=== PATIENT | female | born 1950 | race Caucasian/White ===

== ENCOUNTER 2018-01-19 14:56 | Emergency (ER) | payer OTHER, BC ==
[2018-01-19] MEDS ORDERED: LORazepam 2 MG/ML INJ ONE (15:37)
--- NOTE | 2018-01-19 15:38 | EDPHY ---
H & P Time Seen by Provider: 01/19/18 15:24 HPI/ROS: CHIEF COMPLAINT: Anxiety HISTORY OF PRESENT ILLNESS: The patient is a 67-year-old female who presents emergency department feeling anxious. She reports that she has a history of PTS D. She has recently had her medications changed by Dr. Keen. She was previously on amitriptyline as well as gabapentin. Dr. Keen increased her gabapentin dose from 700-900. She was started on Zoloft. She last took amitriptyline on 01/14/2018. Patient has had increasing anxiety. She feels intermittently short of breath. She has been having shaking episodes. She reports that her doctor told her not to take benzodiazepines because"my body eats them up."She has had no specific chest pain. She has had intermittent abdominal cramping. REVIEW OF SYSTEMS: 10 systems were reveiwed and are negative with the exception of the elements mentioned in the history of present illness. Past Medical/Surgical History: Includes PTSD Past surgical history: Hysterectomy Social history: The patient denies drinking alcohol. She does not do drugs. She does not smoke. Smoking Status: Never smoked Physical Exam: Vitals noted GENERAL: Anxious appearing, in moderate acute distress, alert. Tremulous. HEENT: Eyes normal to inspection, normal pharynx, no signs of dehydration. NECK: Normal, supple. RESPIRATORY: Clear to auscultation bilaterally, no rales, rhonchi or wheezing. CVS: Regular rate and rhythm, no rubs, murmurs, or gallops. ABDOMEN: Soft, nontender, nondistended, no organomegaly. BACK: Normal to inspection, no CVA tenderness. SKIN: Normal color, no rash, warm, dry. No pallor. EXTREMITIES: No pedal edema, no calf tenderness, no Homans sign or cords, no joint swelling. NEURO/PSYCH: Alert and oriented, anxious, normal motor sensory exam. No obvious cranial nerve deficit. Constitutional: Initial Vital Signs Temperature (C) 37 C 01/19/18 15:07 Heart Rate 78 01/19/18 15:07 Respiratory Rate 18 01/19/18 15:07 Blood Pressure 115/72 01/19/18 15:07 O2 Sat (%) 97 01/19/18 15:07 O2 Delivery Mode Room Air Allergies/Adverse Reactions: amoxicillin Allergy (Verified 01/19/18 15:06) Home Medications: Medication Instructions Recorded Buspar (*) 01/19/18 Gabapentin 01/19/18 Zoloft 100mg (*) 01/19/18 Medical Decision Making ED Course/Re-evaluation: In the emergency department I discussed possible etiologies with the patient. I answered her questions. IV was placed. The patient was given Ativan 1 mg I V. She is given normal saline 500 mL IV for hydration. Laboratory studies were ordered. CBC and chemistry unremarkable. I rechecked the patient. She was doing well. She had no complaints. Her anxiety had improved. She had no tremulousness on repeat exam. Patient was given warnings prior to leaving. She will be given a prescription of Xanax. She will follow up with primary care physician. She will continue taking medications as directed. Differential Diagnosis: My differential includes but is not limited to anxiety, PTSD, thyroid disease, electrolyte abnormality, sugar abnormality, suicidal ideation - Data Points Laboratory Results: Laboratory Results 01/19/18 15:45 01/19/18 15:45 01/19/18 01/19/18 15:45 15:45 WBC 11.54 10^3/uL H 10^3/uL (3.80-9.50) RBC 4.71 10^6/uL 10^6/uL (4.18-5.33) Hgb 13.8 g/dL g/dL (12.6-16.3) Hct 41.9 % % (38.0-47.0) MCV 89.0 fL fL (81.5-99.8) MCH 29.3 pg pg (27.9-34.1) MCHC 32.9 g/dL g/dL (32.4-36.7) RDW 14.5 % % (11.5-15.2) Plt Count 268 10^3/uL 10^3/uL (150-400) MPV 9.5 fL fL (8.7-11.7) Neut % (Auto) 79.8 % H % (39.3-74.2) Lymph % (Auto) 12.7 % L % (15.0-45.0) [place] % (Auto) 6.2 % % (4.5-13.0) Eos % (Auto) 0.6 % % (0.6-7.6) Baso % (Auto) 0.4 % % (0.3-1.7) Nucleat RBC Rel Count 0.0 % % (0.0-0.2) Absolute Neuts (auto) 9.20 10^3/uL H 10^3/uL (1.70-6.50) Absolute Lymphs (auto) 1.46 10^3/uL 10^3/uL (1.00-3.00) Absolute Monos (auto) 0.72 10^3/uL 10^3/uL (0.30-0.80) Absolute Eos (auto) 0.07 10^3/uL 10^3/uL (0.03-0.40) Absolute Basos (auto) 0.05 10^3/uL 10^3/uL (0.02-0.10) Absolute Nucleated RBC 0.00 10^3/uL 10^3/uL (0-0.01) Immature Gran % 0.3 % % (0.0-1.1) Immature Gran # 0.04 10^3/uL 10^3/uL (0.00-0.10) Sodium 138 mEq/L mEq/L (135-145) Potassium 4.2 mEq/L mEq/L (3.3-5.0) Chloride 106 mEq/L mEq/L (97-110) Carbon Dioxide 21 mEq/l L mEq/l (22-31) Anion Gap 11 mEq/L mEq/L (8-16) BUN 19 mg/dL mg/dL (7-23) Creatinine 1.0 mg/dL mg/dL (0.6-1.0) Estimated GFR 55 Glucose 108 mg/dL H mg/dL (70-100) Calcium 9.5 mg/dL mg/dL (8.5-10.4) Medications Given: Discontinued Medications Sodium Chloride (Ns) 500 mls @ 0 mls/hr IV ONCE ONE PRN Reason: Wide Open Stop: 01/19/18 15:41 Last Admin: 01/19/18 15:51 Dose: 500 mls Lorazepam (Ativan Injection) 1 mg IVP EDNOW ONE Stop: 01/19/18 15:41 Last Admin: 01/19/18 15:51 Dose: 1 mg Departure - Departure Disposition: Home, Routine, Self-Care Clinical Impression: Anxiety Condition: Good Instructions: Anxiety (ED) Additional Instructions: Return with increasing anxiety, chest pain, shortness of breath or any other concerns Referrals: CARLA ANG [Primary Care Provider] - 3-4 days, if not improved
[2018-01-19] MEDS ORDERED: LORazepam 2 MG/ML INJ IVP ONE (15:40)
[2018-01-19] MEDS ORDERED: NS 500 ML IV ONE (15:40)
[2018-01-19 15:58] LABS: PLATELET COUNT 268 10^3/uL (150-400)
[2018-01-19 16:59] VITALS: BP 111/52
== END 2018-01-19 17:01 | disposition home or self-care (01) ==
DX: F41.9 Anxiety disorder, unspecified (principal); F43.10 Post-traumatic stress disorder, unspecified
CPT/HCPCS: 96374; 99284; J2060